=== PATIENT | female | born 1960 | race Caucasian/White ===

== ENCOUNTER 2019-06-11 22:27 | Emergency (ER) | payer OTHER ==
[~2019-06-11] VITALS: Ht 160 cm; Wt 57.3 kg
[2019-06-11] MEDS ORDERED: SODIUM CHLORIDE FLUSH 10ML SYR IVF ONE (23:30)
[2019-06-11] MEDS ORDERED: PANTOPRAZOLE 40 MG IV IVPush SCH (23:30)
[2019-06-11] MEDS ORDERED: FAMOTIDINE 20 MG/2 ML IV ONE (23:30)
[2019-06-11] MEDS ORDERED: SODIUM CHLORIDE 0.9% 1,000ML IVBOLUS ONE (23:30)
[2019-06-11] MEDS ORDERED: FAMOTIDINE 20 MG/2 ML ONE (23:36)
[2019-06-11] MEDS ORDERED: PANTOPRAZOLE 40 MG IV ONE (23:36)
--- NOTE | 2019-06-11 23:46 | NUR ---
PT REPORTS VOMITING AFTER BINGE DRINKING. VS STABLE. NO ACUTE DISTRESS NOTED. CALL LIGHT IN PLACE. WILL CONTINUE TO MONITOR.
[2019-06-11] MEDS ORDERED: TRAZ-137 PO (23:47)
[2019-06-11] MEDS ORDERED: HORMONE (23:47)
[2019-06-12] LABS: BASOPHILS % (AUTO) 1 % (0-1); EOSINOPHILS % (AUTO) 1 % (1-7); LYMPHOCYTES # (AUTO) 2.85 x10^3/uL (1-3.4); LYMPHOCYTES % (AUTO) 31 % (22-44); MD NO; MEAN CORPUSCULAR HEMOGLOBIN 32.3 pg (27.0-34.8); MEAN CORPUSCULAR HGB CONC 34.1 g/dL (32.4-35.8); MEAN CORPUSCULAR VOLUME 94.6 fL (80-100); MEAN PLATELET VOLUME 8.1 fL (7.4-10.4); MONOCYTES # (AUTO) 0.67 x10^3/uL (0.2-0.8); MONOCYTES % (AUTO) 7 % (2-9); NEUTROPHILS # (AUTO) 5.47 x10^3/uL (1.8-6.8); NEUTROPHILS % (AUTO) 60 % (42-75); PLATELET COUNT 345 x10^3/uL (130-400); RED BLOOD COUNT 4.26 x10^6/uL (3.82-5.3); RED CELL DISTRIBUTION WIDTH 13.2 % (9.6-15.2)
[2019-06-12 00:09] LABS: ALANINE AMINOTRANSFERASE 21 U/L (12-78); ALBUMIN 3.7 g/dL (3.4-5.0); ANION GAP 9 mmol/L (5-15); CALCIUM 8.8 mg/dL (8.5-10.1); CHLORIDE 105 mmol/L (98-107); CREATININE 0.82 mg/dL (0.55-1.02)
[2019-06-12 00:11] LABS: ALKALINE PHOSPHATASE 71 U/L (45-117); BILIRUBIN,TOTAL 0.8 mg/dL (0.2-1.0); TOTAL PROTEIN 7.4 g/dL (6.4-8.2)
[2019-06-12] MEDS ORDERED: ONDANSETRON 2MG/ML, 2ML IVPush ONE (00:30)
[2019-06-12] MEDS ORDERED: ONDANSETRON 2MG/ML, 2ML ONE (00:43)
[2019-06-12 00:46] VITALS: BP 127/67
--- NOTE | 2019-06-12 00:48 | NUR ---
PT RESTING IN ROOM. VS STABLE. NO ACUTE DISTRESS NOTED. WILL CONTINUE TO MONITOR.
[2019-06-12 00:54] LABS: MICROSCOPIC INDICATED
[2019-06-12 00:55] LABS: CULTURE INDICATED? YES
== END 2019-06-12 01:28 | disposition home or self-care (01) ==
LOC: ED 06-12 01:15
DX: E86.0 Dehydration (principal); R11.2 Nausea with vomiting, unspecified; F10.20 Alcohol dependence, uncomplicated
CPT/HCPCS: 36415; 80053; 81001; 83690; 83735; 85025; 87086; 96361; 96374; 96375; 99283; C9113; J2405; J3490; J7030

== ENCOUNTER 2020-05-01 11:54 | Emergency (ER) | payer MEDICAID, OTHER ==
[~2020-05-01] VITALS: Ht 157.5 cm; Wt 55.0 kg
[~2020-05-01 11:54] MED LIST: HORMONE; TRAZ-175 PO
--- NOTE | 2020-05-01 12:44 | NUR ---
BOOKING AGENT: PT TO ROOM FROM ASHLEY WYLIE
--- NOTE | 2020-05-01 12:51 | NUR ---
PT VOMITING. C/O GARCIA X 4 DAYS. TOOK ASA YESTERDAY. TOOK AUGMENTIN FOR SINUS INFECTION; STARTED YESTERDAY, LAST DOSE: THIS AM. LAST FOOD INTAKE: YESTERDAY - SOUP, VOMITED AFTER. DENIES SINUS PRESSURE. REPORTS FRONTAL PAIN RADIATING TO lT & RT, DIZZINESS, +PHOTOPHOBIA. DENIES VISUAL CHANGES. RESP EVEN & UNLABORED, SPEECH CLEAR, SKIN PALE PINK/W/D
[2020-05-01] MEDS ORDERED: PROGESTERONE (12:58)
[2020-05-01] MEDS ORDERED: ESTRADIOL (12:58)
[2020-05-01] MEDS ORDERED: AUGMENTIN (12:58)
--- NOTE | 2020-05-01 12:59 | NUR ---
DR MARTIN BS FOR EXAM
[2020-05-01] MEDS ORDERED: DESV50TA PO (13:11)
[2020-05-01] MEDS ORDERED: GABAPENTIN (13:11)
[2020-05-01] MEDS ORDERED: MORPHINE SULFATE 4 MG/ML, 1ML ONE (13:14)
[2020-05-01] MEDS ORDERED: DIPHENHYDRAMINE 50 MG/ML, 1ML ONE (13:14)
[2020-05-01] MEDS ORDERED: PROCHLORPERAZINE 5 MG/ML, 2ML ONE (13:14)
[2020-05-01 13:27] LABS: BASOPHILS % (AUTO) 1 % (0-1); EOSINOPHILS % (AUTO) 0 % (1-7); LYMPHOCYTES % (AUTO) 26 % (22-44); MEAN CORPUSCULAR HGB CONC 34.1 g/dL (32.4-35.8); MEAN PLATELET VOLUME 7.6 fL (7.4-10.4); MONOCYTES % (AUTO) 8 % (2-9); NEUTROPHILS % (AUTO) 65 % (42-75); PLATELET COUNT 292 x10^3/uL (130-400); RED BLOOD COUNT 4.05 x10^6/uL (3.82-5.3); RED CELL DISTRIBUTION WIDTH 13.2 % (9.6-15.2)
--- NOTE | 2020-05-01 13:27 | NUR ---
NS RAQUEL, INFUSING W-O, SITE PATENT. COMPANZINE, BENADRYL AND MORPHINE GIVEN PER EMAR. SIDE RAIL UP X1, CALL LIGHT W/IN REACH, LIGHTS DIMMED.
[2020-05-01] MEDS ORDERED: SODIUM CHLORIDE FLUSH 10ML SYR IVF ONE (13:30)
[2020-05-01] MEDS ORDERED: PROCHLORPERAZINE 5 MG/ML, 2ML IVPush ONE (13:30)
[2020-05-01] MEDS ORDERED: SODIUM CHLORIDE 0.9% 1,000 ML IV ONE (13:30)
[2020-05-01] MEDS ORDERED: MORPHINE SULFATE 4 MG/ML, 1ML IVPush PRN (13:30)
[2020-05-01] MEDS ORDERED: DIPHENHYDRAMINE 50 MG/ML, 1ML IVPush ONE (13:30)
[2020-05-01 13:34] LABS: MD NO
[2020-05-01 13:35] LABS: ALBUMIN 3.6 g/dL (3.4-5.0); ANION GAP 5 mmol/L (5-15); CALCIUM 8.7 mg/dL (8.5-10.1); CHLORIDE 106 mmol/L (98-107); CREATININE 0.65 mg/dL (0.55-1.02)
[2020-05-01 13:38] LABS: HCT (SEDRATE) 37.9 % (34.6-47.8)
--- NOTE | 2020-05-01 14:15 | NUR ---
PT DOZING; RESP EVEN & UNLABORED
[2020-05-01 14:45] VITALS: BP 128/68
== END 2020-05-01 14:56 | disposition home or self-care (01) ==
LOC: ED 13:15
DX: R51.9 Headache, unspecified (principal); R42 Dizziness and giddiness
CPT/HCPCS: 36415; 70450; 80048; 82040; 85025; 85651; 96361; 96374; 96375; 99284; J0780; J1200; J2270; J7030